=== PATIENT | female | born 1960 | race Caucasian/White ===

== ENCOUNTER 2020-12-05 05:25 | Inpatient (IN) | payer MEDICARE, OTHER ==
[~2020-12-05 05:25] MED LIST: ADVAIR HFA 115-28 GM INH; ADVAIR HFA 230-28 GM INH; ALEVE220 MG PO; ALLERGY RELIEF25 M1 PO; ALLERGY4 MG PO; AMBIEN5 MG PO; AZELASTINE205.5 MCG1; BACTRIM DS TAB1 EACH PO; BACTROBAN NASAL1 GM; BUSPAR5 MG PO; CALCIUM 600 MG1 EAC1 PO; CATAPRES0.1 MG PO; DIAZEPAM 5MG TAB5 MG PO; DIAZEPAM5 MG PO; DIFLUCAN150 M1 PO; FLEXERIL10 MG PO; K-DUR20 MEQ PO; LASIX20 MG PO; LAXATIVE SUPPOS10 MG PO; LIPITOR20 MG PO; LOPRESSOR25 MG PO; LORTAB 10-3251 EACH PO; MINOCIN100 MG PO; MOBIC15 MG PO; NYSTATIN SUSP1 ML/ML PO; PERCOCET 5/3251 TAB PO; PHENERGAN25 M1 PO; PLAVIX75 MG PO; PRILOSEC20 MG PO; PRINIVIL20 MG PO; PROMETHAZINE-D473 M1 PO; SINGULAIR10 MG PO; SPIRIVA18 MCG PO; STOOL SOFTENER50 MG PO; SUDAFED30 MG PO; SYMBICORT 1601 PUFFS INH; THEO-24300 MG PO; THEOPHYLLINE400 MG PO; VENTOLIN HFA IN18 GM INH; VESICARE10 MG PO; XARELTO10 MG PO; ZOLOFT100 M1 PO
[2020-12-05] MEDS ORDERED: PERCOCET 5-3251 EACH PO (06:55)
[2020-12-05 07:19] LABS: HCT 48.4 % (37.0-47.0); HGB 15.4 g/dl (12.5-16.0); MCH 31.6 pg (25.0-31.0); MCHC 31.8 g/dL (32.0-36.0); MCV 99.4 fL (78.0-100.0); MPV 10.2 fL (6.0-9.5); RBC 4.87 M/uL (4.20-5.40); RDW 13.7 % (11.5-14.0); WBC 12.9 K/uL (4.0-10.5)
[2020-12-05] MEDS ORDERED: DOXYCYCLINE HY100 MG PO (07:34)
[2020-12-06 06:30] LABS: BASOPHIL 0.1 % (0-2); EOSINOPHIL 0 % (0-5); HCT 39.8 % (37.0-47.0); HGB 12.7 g/dl (12.5-16.0); LYMPHOCYTE 16.3 % (15-48); MCH 31.8 pg (25.0-31.0); MCHC 31.9 g/dL (32.0-36.0); MCV 99.5 fL (78.0-100.0); MONOCYTE 8.2 % (0-12); MPV 10.3 fL (6.0-9.5); NEUTROPHIL 74.6 % (41-80); NRBC 0; PLT 151 K/uL (150-400); RDW 13.3 % (11.5-14.0); WBC 13.9 K/uL (4.0-10.5)
[2020-12-06 06:47] LABS: BUN/CREAT RATIO (CALC) 20.3 RATIO; CREATININE 0.79 mg/dL (0.51-0.95); POTASSIUM 4.5 mmol/L (3.5-5.1)
[2020-12-06] MEDS ORDERED: FEOSOL325 MG PO (09:04)
[2020-12-06] MEDS ORDERED: DOXYCYCLINE HY100 MG PO (09:04)
[2020-12-06] MEDS ORDERED: XARELTO10 MG PO (09:04)
--- NOTE | 2020-12-06 09:41 | NUR ---
PT. TO D/C HOME WITH SPOUSE. PT. REQUESTED [facility] FOR PT/OT AND NURSING ASSESSMENT. PT. SIGNED CHOICE FORM. AFFIATIONS EXPLAINED. [facility] TO DELIVER A ROLLING WALKER, 01/08 UPON DISCHARGE. TC TO [facility]. CO PAY FOR BRI[facility] IS $3.06.
== END 2020-12-06 12:18 | disposition home health service (06) | DRG 467 ==
LOC: FSDC 05:25 → FMS 07:55
PROVIDERS: ADMIT Orthopaedic Surgery
PROC: 0SRD0J9 Replacement of Left Knee Joint with Synthetic Substitute, Cemented, Open Approach (ICD-10-PCS; 2020-12-05)
PROC: 0SPD0JZ Removal of Synthetic Substitute from Left Knee Joint, Open Approach (ICD-10-PCS; principal; 2020-12-05 07:00)
DX: T84.033A Mechanical loosening of internal left knee prosthetic joint, initial encounter (principal); J98.11 Atelectasis; I10 Essential (primary) hypertension; Y83.8 Other surgical procedures as the cause of abnormal reaction of the patient, or of later complication, without mention of misadventure at the time of the procedure; Z20.822 Contact with and (suspected) exposure to COVID-19; J44.9 Chronic obstructive pulmonary disease, unspecified; G47.30 Sleep apnea, unspecified; Z88.0 Allergy status to penicillin; Z88.1 Allergy status to other antibiotic agents; Z88.2 Allergy status to sulfonamides; Z88.8 Allergy status to other drugs, medicaments and biological substances; R09.02 Hypoxemia
CPT/HCPCS: 36415; 73560; 80048; 85025; 86850; 86900; 86901; 94010; 94667; 94668; 94762; 97110; 97162; 97165; 97530-GP; 97535; C1713; C1776; J0171; J1100; J1170; J1885; J2250; J2270; J2405; J2704; J2795; J3010; J3370; J7040; J7120